=== PATIENT | female | born 1980 | race Caucasian/White ===

== ENCOUNTER 2020-01-29 12:54 | Outpatient (CLI) | payer OTHER, SELFPAY ==
[2020-01-29 22:02] LABS: SARS-CoV-2 RNA PCR Negative
== END 2020-01-29 12:55 | disposition home or self-care (01) ==
LOC: CHSLAB 12:59
PROVIDERS: PCP Family Medicine; Visit Provider Family Medicine
DX: J01.80 Other acute sinusitis (principal); Z20.828 Contact with and (suspected) exposure to other viral communicable diseases
CPT/HCPCS: 87635; C9803; U0003

== ENCOUNTER 2020-04-02 15:36 | Outpatient (CLI) | payer OTHER, SELFPAY ==
--- NOTE | ~2020-04-02 | MM_ITS ---
EXAMINATION: MM screening contra [facility] BI w pooja HISTORY: Screening mammogram TECHNIQUE: Craniocaudal and mediolateral oblique 3-D tomosynthesis images were obtained and synthetic 2-D images were generated. CAD analysis was submitted and interpreted. COMPARISON: None, baseline BREAST PARENCHYMAL COMPOSITION: The breasts are heterogeneously dense, which may obscure small masses . FINDINGS: A fat-containing mass in the upper outer quadrant of the left breast consistent with an int ramammary lymph node. There is no evidence of suspicious mass, calcification, or architectural distor tion to suggest malignancy in either breast. IMPRESSION: 1. No mammographic evidence of malignancy. 2. Recommend routine screening mammography in one year. BI-RADS Category 2: Benign finding(s). Reviewed, dictated and finalized at location A. SMITTER ENGINEER
--- NOTE | ~2020-04-02 | XR_ITS ---
EXAMINATION: XR abdomen obstructive series EXAM DATE: 04/02/2020 16:04 INDICATION: Nausea and vomiting. TECHNIQUE: Frontal upright projection of the upper abdomen, frontal projection of the lower abdomen f or interpretation. There is no prior study for comparison. FINDINGS: There is expected amount of colonic stool and gas. No small bowel dilation, nonobstructiv e bowel gas pattern. Calcifications in the pelvis are believed to be phleboliths. There is no orga nomegaly suspected. The bones are unremarkable. There is no free intraperitoneal air. The lung b ases are clear. IMPRESSION: Unremarkable abdomen x-ray exam. Reviewed, dictated and finalized at location A. WOOD LATHE OPERATOR
== END 2020-04-02 15:37 | disposition home or self-care (01) ==
LOC: CHSIMG 15:38
PROVIDERS: PCP Family Medicine; Visit Provider Family Medicine
DX: Z12.31 Encounter for screening mammogram for malignant neoplasm of breast (principal); R11.2 Nausea with vomiting, unspecified
CPT/HCPCS: 74019; 77063; 77067

== ENCOUNTER 2020-04-08 08:05 | Outpatient (CLI) | payer OTHER, SELFPAY ==
--- NOTE | ~2020-04-08 | US_ITS ---
EXAMINATION: US right upper quadrant EXAM DATE: 04/08/2020 08:31 INDICATION: Nausea with vomiting. TECHNIQUE: Multiple grayscale and Doppler images of the abdomen right upper quadrant were obtained (ave y a technologist who performed the scan) and subsequently reviewed. There is no prior study for dani wilkins. FINDINGS: The pancreatic head and body are normal in appearance. The pancreatic tail is not visualized. The l iver has normal echogenicity and contour. There are no focal liver lesions identified. There is no evidence of intrahepatic biliary duct dilation. Portal venous flow was seen in the hepatopedal, nor mal direction and has normal Doppler waveform. No right-sided hydronephrosis. Common bile duct measures 6 mm, which is normal. The gallbladder wall is normal in thickness, with ex pected amount of distention. No sonographic evidence of pericholecystic fluid. There is no cholelit hiases. Technologist performing exam reports patient did not demonstrate sonographic Black's sign. Please note that this sign is less reliable in patients who have received pain medication. IMPRESSION: 1. Unremarkable abdominal ultrasound exam. Reviewed, dictated and finalized at location B. ROUNDER
--- NOTE | 2020-04-09 12:54 | WPDHOLTEREM ---
Holter/Event Monitor Holter/Event Monitor Date of procedure: 04/08/20 Procedure Type: 24 hour holter monitor Indications: Palpitations Conclusion: 1. 24 hour holter monitor on 04/08/20. 2. Underlying rhythm is sinus rhythm. HR range 51-174 bpm; average HR 84 bpm. 3. No premature supraventricular complexes. No supraventricular tachycardia. 4. There are 393 premature ventricular complexes, 3 ventricular bigeminy and 6 ventricular trigeminy. No ventricular tachycardia. 5. No sinoatrial or atrioventricular blocks. No significant pauses greater than 2 seconds. 6. Patient reports symptoms of rapid heart beat, skipping, chest pain, heart racing which demonstrate sinus rhythm, HR range 79-98 bpm with 2 episodes with PVC's.
== END 2020-04-08 08:06 | disposition home or self-care (01) ==
LOC: CHSIMG 08:08
PROVIDERS: PCP Family Medicine; Visit Provider Family Medicine
DX: R11.2 Nausea with vomiting, unspecified (principal); R00.2 Palpitations
CPT/HCPCS: 76705; 93225; 93226

== ENCOUNTER 2020-04-21 10:44 | Outpatient (CLI) | payer OTHER, SELFPAY ==
--- NOTE | ~2020-04-21 | NM_ITS ---
EXAMINATION: NM hepatobiliary w pharm DATE: 04/21/2020 13:24 INDICATION: Right upper quadrant abdominal pain. COMPARISON: Ultrasound 04/08/2020 TECHNIQUE: 5.9 mCi Tc-99m mebrofenin (Choletec) was administered intravenously. Scintigraphic images of the abdomen were obtained for one hour. Then, 1.3 mcg sincalide (Kinevac) IV was administered, an d imaging was continued for 30 minutes. FINDINGS: There is normal clearance of radiotracer from the blood pool. There is homogeneous tracer u ptake by the liver. Activity progresses to the bowel and gallbladder. Gallbladder ejection fraction (GBEF) was 69%. Note that most patients with gallbladder dysfunction have GBEF < 35%, which overlaps with the broad normal range of 10-90%. IMPRESSION: 1. Normal hepatobiliary scintigraphy. Reviewed, dictated and finalized at location A. IARD TABLE MECHANIC
== END 2020-04-21 10:45 | disposition home or self-care (01) ==
LOC: CHSIMG 10:46
PROVIDERS: PCP Family Medicine; Visit Provider Family Medicine
DX: R10.11 Right upper quadrant pain (principal)
CPT/HCPCS: 78227; A9537; J2805

== ENCOUNTER 2020-06-18 16:57 | Outpatient (CLI) | payer OTHER, SELFPAY ==
[2020-06-18 17:45] LABS: SARS-CoV-2 Ag Negative (Negative)
== END 2020-06-18 16:58 | disposition home or self-care (01) ==
LOC: CHSLAB 16:59
PROVIDERS: PCP Family Medicine; Visit Provider Family Medicine
DX: J00 Acute nasopharyngitis [common cold] (principal); Z20.822 Contact with and (suspected) exposure to COVID-19
CPT/HCPCS: 87081; 87426; 87880; C9803

== ENCOUNTER 2020-08-11 10:46 | Outpatient (CLI) | payer OTHER, SELFPAY ==
--- NOTE | ~2020-08-11 | XR_ITS ---
EXAMINATION: XR abdomen obstructive series DATE: 08/11/2020 11:15 INDICATION: Nausea, vomiting, and diarrhea. Left lower quadrant abdominal pain. TECHNIQUE: Upright and supine views of the abdomen on 3 radiographs were obtained. COMPARISON: Abdomen radiographs 04/02/2020 FINDINGS: There are no dilated loops of bowel. There is a small volume of stool in the colon. Calcifi cations in the pelvis are likely phleboliths. IMPRESSION: 1. Normal bowel gas pattern. Reviewed, dictated and finalized at location A.
--- NOTE | ~2020-08-11 | US_ITS ---
EXAMINATION: US pelvic complete DATE: 08/11/2020 14:15 INDICATION: Left pelvic pain Comparison:04/23/2016 TECHNIQUE: Multiple transabdominal sonographic images of the pelvis performed. FINDINGS: The uterus and right ovary are surgically absent. Left ovary measures 4.3 x 2.3 x 2.2 cm an d contains a 2.4 cm cyst. There is no free fluid in the pelvis. There are no abnormal masses seen on either side. IMPRESSION: 1. Left ovarian cyst measuring 2.4 cm. Reviewed, dictated and finalized at location B.
[2020-08-11 10:57] LABS: Basophils Absolute Auto 0.04 K/mm3 (0.00-0.10); Basophils Percent Auto 0.5 % (0.0-1.0); Eosinophils Percent Auto 1.2 % (1.0-6.0); Hematocrit 39.2 % (35.0-49.0); Hemoglobin 13.3 g/dL (12.0-15.0); Immature Granulocyte Absolute 0.03 K/mm3 (0.00-0.00); Immature Granulocyte Percent A 0.4 % (0.0-0.0); Lymphocytes Absolute Auto 1.68 K/mm3 (1.10-4.50); Lymphocytes Percent Auto 20.4 % (18.0-42.0); Mean Corpuscular HGB Conc 33.9 g/dL (32.0-36.0); Mean Corpuscular Hemoglobin 31.9 pg (27.0-31.0); Mean Platelet Volume 9.3 fl (9.2-11.8); Monocytes Percent Auto 4.9 % (2.0-11.0); Neutrophils Percent Auto 72.6 % (50.0-70.0); Platelet Count Result 273 K/mm3 (150-420); Red Blood Count 4.17 M/mm3 (4.20-5.40); Red Cell Distribution Width 12.4 % (11.6-14.4); White Blood Count 8.2 K/mm3 (4.8-10.8)
[2020-08-11 11:07] LABS: Add Urine Microscopic? YES; Appearance Urine Clear (Clear); Bilirubin Urine Negative (Negative); Blood Urine Negative (Negative); Color Urine Yellow (Yellow); Glucose Urine UA Negative (Negative); Ketones Urine 1+ (Negative); Leukocyte Esterase Ur Negative (Negative); Nitrate Urine Negative (Negative); Protein Urine Negative (Negative); Specific Grav Ur >= 1.030 (1.010-1.020); Urobilinogen Urine 0.2 mg/dL (0.2-1.0); pH Urine 5.5 (5.0-8.0)
[2020-08-11 11:22] LABS: Bacteria Urine 1+ /hpf; Mucus Urine Few /lpf; RBC Urine None seen /hpf (0-2); Squamous Epithelial Cell Urine Few /hpf (Few); WBC Urine None seen /hpf (0-3)
[2020-08-11 11:25] LABS: Alanine Aminotransferase 35 U/L (14-59); Albumin Level 4.2 g/dL (3.4-5.0); Alkaline Phosphatase 68 U/L (46-116); Amylase 45 U/L (25-115); Anion Gap 8 mmol/L (8-16); Aspartate Amino Transferase 27 U/L (15-37); Blood Urea Nitrogen 16 mg/dL (7-18); Calcium 9.3 mg/dL (8.5-10.1); Carbon Dioxide 28 mmol/L (21-32); Chloride 101 mmol/L (98-108); Estimated Glomerular Filt Rate > 60; Glucose 131 mg/dL (70-99); Lipase 118 U/L (73-393); Osmolality Calculated 287 mOsm/kg (285-295); Potassium 3.3 mmol/L (3.5-5.1); Sodium 137 mmol/L (136-145); Total Protein 7.7 g/dL (6.4-8.2)
[2020-08-11 16:44] LABS: Hemoglobin A1C 5.3 % (<5.7)
== END 2020-08-11 10:47 | disposition home or self-care (01) ==
PROVIDERS: PCP Family Medicine; Visit Provider Family Medicine
DX: R10.9 Unspecified abdominal pain (principal); R73.9 Hyperglycemia, unspecified
CPT/HCPCS: 36415; 74019; 76856; 80053; 81001; 82150; 83036; 83690; 85025

== ENCOUNTER 2020-08-28 12:00 | Outpatient (CLI) | payer OTHER, SELFPAY ==
[2020-08-28 13:04] LABS: SARS-CoV-2 RNA PCR Negative (Negative)
== END 2020-08-28 12:01 | disposition home or self-care (01) ==
LOC: CHSLAB 12:02
PROVIDERS: PCP Family Medicine; Visit Provider Nurse Practitioner Family
DX: Z20.822 Contact with and (suspected) exposure to COVID-19 (principal)
CPT/HCPCS: C9803; U0003; U0005

== ENCOUNTER 2020-11-25 16:40 | Outpatient (CLI) | payer OTHER, SELFPAY ==
[2020-11-25 17:17] LABS: Thyroid Stimulating Hormone 2.41 uIU/mL (0.36-3.74)
== END 2020-11-25 16:41 | disposition home or self-care (01) ==
LOC: CHSLAB 16:42
PROVIDERS: PCP Family Medicine; Visit Provider Family Medicine
DX: R94.6 Abnormal results of thyroid function studies (principal)
CPT/HCPCS: 36415; 84443

== ENCOUNTER 2021-03-10 17:09 | Outpatient (CLI) | payer OTHER, SELFPAY ==
--- NOTE | ~2021-03-10 | XR_ITS ---
XR knee RT 3V 03/10/2021 17:52 INDICATION: Right knee pain PROCEDURE: 3 views right knee COMPARISON: No prior studies for comparison. FINDINGS: Fracture, dislocation or subluxation is not identified. No significant joint effusion. The soft tissues appear within normal limits. No foreign bodies are identified. IMPRESSION: 1: NO ACUTE BONE OR JOINT ABNORMALITY IDENTIFIED. Reviewed, dictated and finalized at location A. K PATROL
== END 2021-03-10 17:10 | disposition home or self-care (01) ==
LOC: CHSIMG 17:13
PROVIDERS: PCP Family Medicine; Visit Provider Family Medicine
DX: M25.561 Pain in right knee (principal)
CPT/HCPCS: 73562

== ENCOUNTER 2021-07-10 10:23 | Emergency (ER) | payer OTHER, SELFPAY ==
--- NOTE | ~2021-07-10 | XR_ITS ---
EXAMINATION: XR chest 1V portable DATE: 07/10/2021 10:48 INDICATION: Central chest pain radiating to the left neck and left arm. Shortness of breath. TECHNIQUE: frontal view of the chest was obtained. COMPARISON: Chest radiograph and CT dated 09/03/2018 FINDINGS: Subtle left perihilar opacity. No pleural effusion or pneumothorax. The cardiomediastinal silhouette is normal. Visualized bones and soft tissues are unremarkable. IMPRESSION: 1. Subtle left perihilar opacity which could represent asymmetric mild pulmonary edema or pneumonia. Reviewed, dictated and finalized at location A. IMPRESSION: 1. Subtle left perihilar opacity which could represent asymmetric mild pulmonar y edema or pneumonia.
[2021-07-10 10:25] VITALS: BP 166/87; PULSE 91; RESP 20; TEMP 36.4; O2SAT 98
--- NOTE | 2021-07-10 10:35 | ECG_ITS ---
Measurements Intervals [place] Rate: 58 P: 66 FL: 137 QRS: 33 QRSD: 90 T: 34 QT: 399 QTc: 394 Interpretive Statements SINUS BRADYCARDIA NONSPECIFIC ST ABNORMALITY. ABNORMAL ECG NO PREVIOUS ECG AVAILABLE FOR COMPARISON Electronically Signed On 07-10-2021 16:10:33 CDT by Golden De Luna M.D.
--- NOTE | 2021-07-10 10:43 | ED.GENADULT ---
HPI - General Adult General Chief complaint: Chest Pain Stated complaint: High Blood presure/Chest pain/jaw pain Source: patient Mode of arrival: ambulatory Limitations: no limitations History of Present Illness HPI narrative: Anna is a 41F with a PMH of anxiety, GERD, chronic nausea and vomiting that presented to the ED with chest pain and palpitations. It has been on and of for a few days. Today it is a substernal pressure just in her chest with no lightheadedness or near syncope. Her nausea and vomiting is at baseline. Today her CP does not radiate but yesterday it went to the left arm. She is very concerned as her sisters had MIs at young ages and one from it. Related Data Home Medications Medication Instructions Recorded Confirmed levothyroxine 88 mcg PO DAILY 07/10/21 07/10/21 nortriptyline 25 mg PO DAILY 07/10/21 07/10/21 omeprazole 20 mg PO DAILY 07/10/21 07/10/21 Allergies Allergy/AdvReac Type Severity Reaction Status Date / Time Penicillins Allergy Anaphylaxis Verified 07/10/21 10:51 Review of Systems Constitutional: Constitutional: Reports no additional constitutional complaints, Denies chills and Denies fever(s) Eyes: Eyes: Reports no additional eye complaints ENT: Reports system reviewed and no additional complaints, except as documented Cardiovascular: Cardiovascular: Reports as per HPI Respiratory: Respiratory: Denies cough and Denies dyspnea Gastrointestinal: Gastrointestinal: Reports no additional gastrointestinal complaints Genitourinary: Genitourinary: Reports no additional female genitourinary complaints Musculoskeletal: Musculoskeletal: Reports no additional musculoskeletal complaints Integumentary/Breasts: Skin/Breast: Reports system reviewed and no additional complaints, except as docu Neurologic: Reports system reviewed and no additional complaints, except as documented Psychiatric: Psychiatric: Reports no additional psychiatric complaints Endocrine: Endocrine: Reports no additional endocrine complaints Hematologic/Lymphatic: Hematologic/Lymphatic: Reports no additional hematologic/lymphatic complaints Allergic/Immunologic: Allergic/Immunologic: Reports no additional allergic/immunologic complaints Exam Const: General: no acute distress and alert Orientation/consciousness: patient oriented x3 Limitations: No altered mental status HENMT: Head: normal to inspection Other: normocephalic, atraumatic Eyes: Pupils: Equal, round and reactive pupils present Neck: Neck: normal visual inspection Chest: Chest palpation & inspection: normal inspection of the chest Resp: Effort & Inspection: normal respiratory effort, not labored and not tachypneic Auscultation: clear to auscultation bilaterally Cardio: Rate: regular rate Rhythm: regular rhythm Heart sounds: no murmurs GI: Inspection: non-distended GI Palp: Yes Soft to palpation and No Tenderness to palpation present (GI) : General: Yes no CVA tenderness Back/Spine/Pelvis: Back: no CVA tenderness Skin: General skin exam: normal color Rashes: no rashes Neuro: General: patient oriented x3 and moves all extremities Extrem: General: normal to inspection Psych: Appearance: grossly normal Mental Status: mental status grossly normal Thought content: Yes Normal thought content present Course Course Emergency Course: Ordered labs, EKG, CXR, aspirin and Ativan EKG showed sinus bradycardia with a rate of 58, no ST elevation/depression or ectopy Lab work unremarkable. CP resolved after ativan. Clinical picture not consistent with subtle CXR findings so likely false finding. Discharged home and given return precautions. Vital Signs Vital signs: Vital Signs Temperature 97.6 F 07/10/21 10:25 Pulse Rate 91 07/10/21 10:25 Respiratory Rate 20 07/10/21 10:25 Blood Pressure 166/87 H 07/10/21 10:25 Pulse Oximetry 98 07/10/21 10:25 Temperature 97.6 F 07/10/21 11:22 Pulse Rate 67 07/10/21
[2021-07-10 10:55] LABS: Basophils Absolute Auto 0.04 K/mm3 (0.00-0.10); Basophils Percent Auto 0.9 % (0.0-1.0); Eosinophils Absolute Auto 0.12 K/mm3 (0.02-0.50); Eosinophils Percent Auto 2.6 % (1.0-6.0); Hemoglobin 13.4 g/dL (12.0-15.0); Immature Granulocyte Absolute 0.01 K/mm3 (0.00-0.00); Immature Granulocyte Percent A 0.2 % (0.0-0.0); Lymphocytes Absolute Auto 1.27 K/mm3 (1.10-4.50); Lymphocytes Percent Auto 27.1 % (18.0-42.0); Mean Corpuscular HGB Conc 34.4 g/dL (32.0-36.0); Mean Corpuscular Hemoglobin 32.8 pg (27.0-31.0); Mean Corpuscular Volume 95.4 fL (78.0-102.0); Mean Platelet Volume 9.6 fl (9.2-11.8); Monocytes Absolute Auto 0.25 K/mm3 (0.10-0.90); Monocytes Percent Auto 5.3 % (2.0-11.0); Neutrophils Percent Auto 63.9 % (50.0-70.0); Platelet Count Result 305 K/mm3 (150-420); Red Blood Count 4.09 M/mm3 (4.20-5.40); White Blood Count 4.7 K/mm3 (4.8-10.8)
[2021-07-10] MEDS: ASPIRIN 81 MG CHEWABLE TABLET 324 MG PO (11:07)
[2021-07-10] MEDS: LORazepam INJ (*CRX) 2 MG/ML VIAL 1 MG IV PUSH (11:07)
[2021-07-10 11:16] LABS: Alanine Aminotransferase 23 U/L (14-59); Albumin Level 4.4 g/dL (3.4-5.0); Alkaline Phosphatase 58 U/L (46-116); Anion Gap 13 mmol/L (8-16); Aspartate Amino Transferase 22 U/L (15-37); Bilirubin,Total 1.5 mg/dL (0.00-1.00); Blood Urea Nitrogen 11 mg/dL (7-18); Calcium 9.3 mg/dL (8.5-10.1); Carbon Dioxide 25 mmol/L (21-32); Chloride 103 mmol/L (98-108); Estimated CRCL calculation 73 ml/min; Estimated Glomerular Filt Rate > 60; Glucose 86 mg/dL (70-99); Lipase 96 U/L (73-393); Magnesium 1.8 mg/dL (1.8-2.4); NT Pro B Type Natriuretic Pept 63 pg/mL (0-125); Osmolality Calculated 290 mOsm/kg (285-295); Potassium 3.3 mmol/L (3.5-5.1); Sodium 141 mmol/L (136-145); Total Protein 7.7 g/dL (6.4-8.2)
[2021-07-10 11:22] VITALS: BP 134/83; PULSE 67; RESP 20; TEMP 36.4; O2SAT 98
== END 2021-07-10 11:26 | disposition home or self-care (01) ==
PROVIDERS: Emergency Provider Family Medicine; PCP Family Medicine
DX: R07.9 Chest pain, unspecified (principal); F43.9 Reaction to severe stress, unspecified
CPT/HCPCS: 36415; 71045; 80053; 83690; 83735; 83880; 84484; 85025; 93005; 96374; 99284; A9270; J2060

== ENCOUNTER 2021-08-10 08:45 | Outpatient (CLI) | payer OTHER, SELFPAY ==
--- NOTE | 2021-08-10 09:35 | EST_ITS ---
Patient Info Name: Anna Meyer Age: 41 years : 1980 Gender: Female Ht: 62 in Wt: 133 lbs BSA: 1.64 m2 HR: 79 bpm BP: 130 / 80 mmHg Heart Rhythm: Sinus Rhythm Technical Quality: Good Exam Date: 08/10/2021 9:26 AM Exam Location: [facility] Patient Status: Outpatient Admit Date: 08/10/2021 Staff Ordering Physician: Rubén Cvaazos MD Attending Provider: Rubén Cavazos MD Exercise Technologist: Rhoda Abdul CRT Exercise Physician: Maddie Green CEP Exam Type: CA stress test treadmill Study Info Indications ChestPain - A treadmill exercise stress test was performed. History/Risk Factors Tobacco Use: Former Dialysis: None History/Risk Factors Former Smoker. Summary 1. 1. Negative Tera exercise stress test for ischemic ST changes by ECG criteria. 2. 2. Good functional capacity, achieving 11 METs of workload. 3. 3. Appropriate HR response to exercise. 4. 4. Appropriate HR recovery at 1 minute post exercise. 5. 5. No imaging with stress testing. Protocol: Tera Stress ECG Details Stage: REST Duration (min): 6 min : 41 sec Speed (mph): 0.0 Grade (%): 0 HR (bpm): 61 SBP (mmHg): --- DBP (mmHg): --- METS: --- Stage: REST Duration (min): 8 min : 26 sec Speed (mph): 0.0 Grade (%): 0 HR (bpm): 74 SBP (mmHg): --- DBP (mmHg): --- METS: --- Stage: STAGE 1 Duration (min): 1 min : 0 sec Speed (mph): 1.7 Grade (%): 10 HR (bpm): 92 SBP (mmHg): --- DBP (mmHg): --- METS: --- Stage: STAGE 1 Duration (min): 2 min : 0 sec Speed (mph): 1.7 Grade (%): 10 HR (bpm): 91 SBP (mmHg): --- DBP (mmHg): --- METS: --- Stage: STAGE 1 Duration (min): 3 min : 0 sec Speed (mph): 1.7 Grade (%): 10 HR (bpm): 102 SBP (mmHg): --- DBP (mmHg): --- METS: --- Stage: STAGE 2 Duration (min): 1 min : 0 sec Speed (mph): 2.5 Grade (%): 12 HR (bpm): 111 SBP (mmHg): --- DBP (mmHg): --- METS: --- Stage: STAGE 2 Duration (min): 2 min : 0 sec Speed (mph): 2.5 Grade (%): 12 HR (bpm): 118 SBP (mmHg): --- DBP (mmHg): --- METS: --- Stage: STAGE 2 Duration (min): 3 min : 0 sec Speed (mph): 2.5 Grade (%): 12 HR (bpm): 115 SBP (mmHg): --- DBP (mmHg): --- METS: --- Stage: STAGE 3 Duration (min): 1 min : 0 sec Speed (mph): 3.4 Grade (%): 14 HR (bpm): 130 SBP (mmHg): --- DBP (mmHg): --- METS: --- Stage: STAGE 3 Duration (min): 2 min : 0 sec Speed (mph): 3.4 Grade (%): 14 HR (bpm): 134 SBP (mmHg): --- DBP (mmHg): --- METS: --- Stage: STAGE 3 Duration (min): 3 min : 0 sec Speed (mph): 3.4 Grade (%): 14 HR (bpm): 134 SBP (mmHg): --- DBP (mmHg): --- METS: --- Stage: STAGE 4 Duration (min): 0 min : 44 sec Speed (mph): 4.2 Grade (%): 1
== END 2021-08-10 08:46 | disposition home or self-care (01) ==
PROVIDERS: PCP Family Medicine; Visit Provider Family Medicine
DX: R07.9 Chest pain, unspecified (principal)
CPT/HCPCS: 93017

== ENCOUNTER 2022-02-16 08:27 | Outpatient (CLI) | payer OTHER, SELFPAY ==
--- NOTE | ~2022-02-16 | US_ITS ---
EXAMINATION: US abdomen complete DATE: 02/16/2022 09:16 INDICATION: ELEVATED LIVER ENZYMES TECHNIQUE: Multiple grayscale and Doppler ultrasound images of the abdomen were obtained. COMPARISON: 04/08/2020. Hepatobiliary scan 04/21/2020. FINDINGS: The visualized portions of the pancreas are normal. The liver is enlarged with increased ec hogenicity and normal echotexture. No surface nodularity. Normal hepatopetal flow in the main portal vein. The gallbladder is distended and contains sludge. No wall thickening or pericholecystic fluid. The common bile duct measures 10 mm. There was no sonographic Black sign. The visualized portions of the aorta and inferior vena cava are normal. The right kidney measures 10.0 x 4.8 x 3.6. The left kidney measures 10.3 x 5.2 x 5.1. The kidneys de monstrate normal parenchymal echogenicity. There is no hydronephrosis. The spleen is normal in appear ance and measures 10.0 cm. IMPRESSION: Gallbladder hydrops and extrahepatic bile duct dilation. Consider MRCP for further evaluation. Reviewed, dictated and finalized at location K. IMPRESSION: Gallbladder hydrops and extrahepatic bile duct dilation. Consider MRCP for furt her evaluation.
== END 2022-02-16 08:28 | disposition home or self-care (01) ==
LOC: CHSIMG 08:29
PROVIDERS: PCP Family Medicine; Visit Provider Family Medicine
DX: R94.5 Abnormal results of liver function studies (principal)
CPT/HCPCS: 76700

== ENCOUNTER 2022-07-08 09:20 | Outpatient (CLI) | payer OTHER, SELFPAY ==
--- NOTE | ~2022-07-08 | MR_ITS ---
MRI of the brain Clinical History: Headache Technique: Axial and sagittal T1-weighted images were acquired. These were followed by axial T2-weigh mellisa, diffusion weighted, gradient, and FLAIR images. Findings: No significant signal abnormality seen in the brain parenchyma. There is no acute infarct, intracranial hemorrhage, or mass lesion. Ventricles and subarachnoid spaces are unremarkable. Orbits are unremarkable. Small retention cyst or polyp present in the left sphenoid sinus. Paranasal sinuses and mastoid air cells are otherwise kassy r. Major intracranial flow voids appear intact. Sagittal midline structures are intact. IMPRESSION: No significant abnormality seen. Reviewed, dictated and finalized at location .
== END 2022-07-08 09:21 | disposition home or self-care (01) ==
LOC: CHSIMG 09:21
PROVIDERS: PCP Family Medicine; Visit Provider Family Medicine
DX: R51.9 Headache, unspecified (principal)
CPT/HCPCS: 70551

== ENCOUNTER 2022-12-07 10:54 | Outpatient (CLI) | payer OTHER, SELFPAY ==
[2022-12-07 11:13] LABS: Hematocrit 40.5 % (35.0-49.0); Hemoglobin 13.4 g/dL (12.0-15.0); Immature Granulocyte Percent A 0.6 % (0.0-0.0); Mean Corpuscular HGB Conc 33.1 g/dL (32.0-36.0); Mean Corpuscular Hemoglobin 33.8 pg (27.0-31.0); Mean Corpuscular Volume 102.3 fL (78.0-102.0); Mean Platelet Volume 10.2 fl (9.2-11.8); Neutrophils Percent Auto 57.1 % (50.0-70.0); Platelet Count Result 294 K/mm3 (150-420); Red Blood Count 3.96 M/mm3 (4.20-5.40); Red Cell Distribution Width 13.3 % (11.6-14.4); White Blood Count 5.3 K/mm3 (4.8-10.8)
[2022-12-07 11:14] LABS: Basophils Absolute Auto 0.06 K/mm3 (0.00-0.10); Basophils Percent Auto 1.1 % (0.0-1.0); Eosinophils Absolute Auto 0.22 K/mm3 (0.02-0.50); Eosinophils Percent Auto 4.1 % (1.0-6.0); Immature Granulocyte Absolute 0.03 K/mm3 (0.00-0.00); Lymphocytes Percent Auto 28.1 % (18.0-42.0); Monocytes Absolute Auto 0.48 K/mm3 (0.10-0.90); Neutrophils Absolute Auto 3.1 K/mm3 (1.7-7.2)
[2022-12-07 12:10] LABS: Alanine Aminotransferase 101 U/L (14-59); Albumin Level 3.4 g/dL (3.4-5.0); Alkaline Phosphatase 80 U/L (46-116); Amylase 47 U/L (25-115); Anion Gap 8 mmol/L (8-16); Aspartate Amino Transferase 82 U/L (15-37); Bilirubin,Total 0.6 mg/dL (0.00-1.00); Blood Urea Nitrogen 15 mg/dL (7-18); Calcium 8.3 mg/dL (8.5-10.1); Carbon Dioxide 27 mmol/L (21-32); Chloride 106 mmol/L (98-108); Estimated Glomerular Filt Rate > 60; Glucose 84 mg/dL (70-99); Lipase 48 U/L (16-77); Osmolality Calculated 291 mOsm/kg (285-295); Potassium 3.8 mmol/L (3.5-5.1); Sodium 141 mmol/L (136-145); Thyroid Stimulating Hormone 17.24 uIU/mL (0.36-3.74); Total Protein 6.3 g/dL (6.4-8.2)
== END 2022-12-07 10:55 | disposition home or self-care (01) ==
LOC: CHSLAB 10:56
PROVIDERS: PCP Family Medicine; Visit Provider Family Medicine
DX: R10.84 Generalized abdominal pain (principal); E03.8 Other specified hypothyroidism
CPT/HCPCS: 36415; 80053; 82150; 83690; 84443; 85025

== ENCOUNTER 2022-12-09 07:26 | Outpatient (CLI) | payer OTHER, SELFPAY ==
--- NOTE | ~2022-12-09 | US_ITS ---
EXAMINATION: US abdomen complete DATE: 12/09/2022 07:49 INDICATION: Elevated liver enzymes TECHNIQUE: Multiple grayscale and Doppler ultrasound images of the abdomen were obtained. COMPARISON: 02/16/2022 FINDINGS: The head and body of the pancreas are normal. The pancreatic tail is obscured by bowel gas. The liver is normal with normal echogenicity and echotexture. No surface nodularity. Normal hepatope bella flow in the main portal vein. The gallbladder is normal with no abnormal wall thickening, pericho lecystic fluid or stones. The normal common bile duct measures 6 mm. There was no sonographic Black sign. The visualized portions of the aorta and inferior vena cava are normal. The spleen is normal in appearance and measures 11.1 cm. The right kidney measures 9.6 x 4.3 x 3.7 cm . The left kidney measures 9.0 x 3.6 x 5.1 cm. The kidneys demonstrate normal parenchymal echogenicit y. There is no hydronephrosis. IMPRESSION: 1. No sonographic correlate for the patient's symptoms. Reviewed, dictated and finalized at location A.
== END 2022-12-09 07:27 | disposition home or self-care (01) ==
LOC: CHSIMG 07:28
PROVIDERS: PCP Family Medicine; Visit Provider Family Medicine
DX: R74.01 Elevation of levels of liver transaminase levels (principal)
CPT/HCPCS: 76700

== ENCOUNTER 2023-02-14 17:22 | Emergency (ER) | payer SELFPAY ==
--- NOTE | ~2023-02-14 | CT_ITS ---
EXAMINATION: CT abdomen pelvis w con DATE: 02/14/2023 19:04 INDICATION: Acute bilateral lower lower abdominal pain. TECHNIQUE: Computed tomography (CT) of the abdomen and pelvis was performed with 100 cc Omnipaque 350 intravenous contrast. The dose-length product was 332.73 mGy-cm. Automated exposure control and iter ative reconstruction technique were employed. COMPARISON: None. FINDINGS: Lung bases unremarkable. Heart size normal. No significant pleural or pericardial effusion. Fatty infiltration of the liver. The spleen, pancreas, adrenal glands and kidneys are unremarkable. No hydronephrosis. Nonobstructive bowel gas pattern. There is free fluid in the pelvic cul-de-sac. No nobstructive bowel pattern. No significant vascular abnormality. No lymphadenopathy. Gallbladder is p resent. No acute osseous abnormality. There is diffuse abnormal thickening of the transverse, descend ing and sigmoid colon, suspicious for colitis. IMPRESSION: 1. Free fluid in the pelvic cul-de-sac, nonspecific. 2: Abnormal thickening of the distal colon including the transverse, descending and sigmoid colon, lewis spicious for colitis, most likely infectious or inflammatory. Reviewed, dictated and finalized at location A. IMPRESSION: 1. Free fluid in the pelvic cul-de-sac, nonspecific. 2: Abnormal thickening of the distal colon including the transverse, descending and sigmoid colon, suspicious for colitis, most likely infectious or inflammat ory.
[2023-02-14 17:35] VITALS: BP 108/66; PULSE 59; RESP 16; TEMP 36.9; O2SAT 97
[2023-02-14 18:05] LABS: Basophils Absolute Auto 0.04 K/mm3 (0.00-0.10); Basophils Percent Auto 0.9 % (0.0-1.0); Eosinophils Absolute Auto 0.16 K/mm3 (0.02-0.50); Eosinophils Percent Auto 3.8 % (1.0-6.0); Hematocrit 45.6 % (35.0-49.0); Hemoglobin 15.3 g/dL (12.0-15.0); Immature Granulocyte Absolute 0.01 K/mm3 (0.00-0.00); Immature Granulocyte Percent A 0.2 % (0.0-0.0); Lymphocytes Absolute Auto 1.14 K/mm3 (1.10-4.50); Mean Corpuscular HGB Conc 33.6 g/dL (32.0-36.0); Mean Corpuscular Volume 98.3 fL (78.0-102.0); Mean Platelet Volume 9.8 fl (9.2-11.8); Monocytes Percent Auto 9.5 % (2.0-11.0); Neutrophils Absolute Auto 2.5 K/mm3 (1.7-7.2); Neutrophils Percent Auto 58.6 % (50.0-70.0); Platelet Count Result 251 K/mm3 (150-420); Red Blood Count 4.64 M/mm3 (4.20-5.40); Red Cell Distribution Width 12.7 % (11.6-14.4); White Blood Count 4.2 K/mm3 (4.8-10.8)
[2023-02-14] MEDS: SODIUM CHLORIDE 0.9% IV 1,000 ML 999 ML IV CONT (18:05)
[2023-02-14 18:06] LABS: Appearance Urine Clear (Clear); Bilirubin Urine Negative (Negative); Blood Urine Negative (Negative); Color Urine Yellow (Yellow); Glucose Urine UA Negative (Negative); Ketones Urine Negative (Negative); Leukocyte Esterase Ur Negative LEU/UL (Negative); Nitrate Urine Negative (Negative); Protein Urine Negative (Negative); Specific Grav Ur 1.025 (1.010-1.020); Urobilinogen Urine 0.2 mg/dL (0.2-1.0)
[2023-02-14] MEDS: KETOROLAC 30 MG/ML VIAL (*BKC) IV PUSH (18:07)
[2023-02-14 18:12] LABS: Add Urine Microscopic? NO
[2023-02-14 18:27] LABS: Alanine Aminotransferase 125 U/L (14-59); Albumin Level 3.2 g/dL (3.4-5.0); Alkaline Phosphatase 99 U/L (46-116); Anion Gap 7 mmol/L (8-16); Aspartate Amino Transferase 70 U/L (15-37); Bilirubin,Total 1.4 mg/dL (0.00-1.00); Blood Urea Nitrogen 9 mg/dL (7-18); Carbon Dioxide 28 mmol/L (21-32); Chloride 105 mmol/L (98-108); Estimated CRCL calculation 75 ml/min; Estimated Glomerular Filt Rate > 60; Glucose 93 mg/dL (70-99); Lipase 25 U/L (16-77); Osmolality Calculated 288 mOsm/kg (285-295); Sodium 140 mmol/L (136-145); Total Protein 6.6 g/dL (6.4-8.2)
--- NOTE | 2023-02-14 19:26 | ED.GENADULT ---
HPI - General Adult General Chief complaint: Abdominal Pain Stated complaint: abd pain Time Seen by Provider: 02/14/23 17:42 History of Present Illness HPI narrative: 42yo woman with history of diverticulosis presents with bilateral lower abdominal pain for a few days with new onset nausea, diarrhea, and bloody stools. No fever. Pain mild to moderate. Related Data Home Medications Medication Instructions Recorded Confirmed levothyroxine 88 mcg tablet 88 mcg PO DAILY 07/10/21 02/14/23 nortriptyline 25 mg capsule 25 mg PO DAILY 07/10/21 02/14/23 omeprazole 20 mg capsule,delayed 20 mg PO DAILY 07/10/21 02/14/23 release Allergies Allergy/AdvReac Type Severity Reaction Status Date / Time Penicillins Allergy Anaphylaxis Verified 02/14/23 17:24 Review of Systems Review of Systems: All systems reviewed & are unremarkable except as noted in HPI and below Constitutional: Constitutional: Denies chills and Denies fever(s) ENT: Denies dysphagia Cardiovascular: Cardiovascular: Denies chest pain Respiratory: Respiratory: Denies dyspnea Gastrointestinal: Gastrointestinal: Reports abdominal pain Exam Const: General: healthy appearing and no acute distress Nutritional Appearance: well nourished Eyes: Conjunctivae: conjunctivae normal Cardio: Rate: regular rate Rhythm: regular rhythm Heart sounds: no murmurs GI: Inspection: non-distended GI Palp: Yes Soft to palpation and Yes Tenderness to palpation present (GI) Skin: General skin exam: normal color, no jaundice and no pallor Extrem: General: no clubbing, cyanosis or edema Course Course Emergency Course: CT notable for colitis. Abx and anti-inflammatories and antihistamines ordered. Fluids given. Stable exam. Appropriate for outpt mgt. Vital Signs Vital signs: Vital Signs Temperature 36.9 C 02/14/23 17:35 Pulse Rate 59 L 02/14/23 17:35 Respiratory Rate 16 02/14/23 17:35 Blood Pressure 108/66 02/14/23 17:35 Pulse Oximetry 97 02/14/23 17:35 Oxygen Delivery Room Air 02/14/23 17:35 Temperature 36.9 C 02/14/23 17:35 Pulse Rate 59 L 02/14/23 17:35 Respiratory Rate 16 02/14/23 17:35 Blood Pressure 108/66 02/14/23 17:35 Pulse Oximetry 97 02/14/23 17:35 Oxygen Delivery Room Air 02/14/23 17:35 Medical Decision Making MDM Narrative Medical decision making narrative: acute BLQ abd pain DDx diverticulitis, coitis, cystitis, probably not appendicitis. Probably more severe than indigestion. Vital Signs Vital Signs: Vital Signs Temperature 36.9 C 02/14/23 17:35 Pulse Rate 59 L 02/14/23 17:35 Respiratory Rate 16 02/14/23 17:35 Blood Pressure 108/66 02/14/23 17:35 Pulse Oximetry 97 02/14/23 17:35 Oxygen Delivery Room Air 02/14/23 17:35 Temperature 36.9 C 02/14/23 17:35 Pulse Rate 59 L 02/14/23 17:35 Respiratory Rate 16 02/14/23 17:35 Blood Pressure 108/66 02/14/23 17:35 Pulse Oximetry 97 02/14/23 17:35 Oxygen Delivery Room Air 02/14/23 17:35 Lab Data 02/14/23 18:02 02/14/23 18:02 Labs: Lab Results 02/14/23 Range/Units 18:02 WBC 4.2 L (4.8-10.8) K/mm3 RBC 4.64 (4.20-5.40) M/mm3 Hgb 15.3 H (12.0-15.0) g/dL Hct 45.6 (35.0-49.0) % MCV 98.3 (78.0-102.0) fL MCH 33.0 H (27.0-31.0) pg MCHC 33.6 (32.0-36.0) g/dL RDW 12.7 (11.6-14.4) % Plt Count 251 (150-420) K/mm3 MPV 9.8 (9.2-11.8) fl Immature Gran % (Auto) 0.2 H (0.0-0.0) % Neut % (Auto) 58.6 (50.0-70.0) % Lymph % (Auto) 27.0 (18.0-42.0) % [place] % (Auto) 9.5 (2.0-11.0) % Eos % (Auto) 3.8 (1.0-6.0) % Baso % (Auto) 0.9 (0.0-1.0) % Lymph # (Auto) 1.14 (1.10-4.50) K/mm3 [place] # (Auto) 0.40 (0.10-0.90) K/mm3 Eos # (Auto) 0.16 (0.02-0.50) K/mm3 Baso # (Auto) 0.04 (0.00-0.10) K/mm3 Abs Immat Gran (auto) 0.01 H (0.00-0.00) K/mm3 Absolute Neuts (auto) 2.5 (1.7-7.2) K/mm3 Absolute Nucleated RBC 0.00 (0.00
[2023-02-14] MEDS: diphenhydrAMINE HCl INJ 50 MG/ML VIAL 25 MG IV PUSH (19:32)
[2023-02-14] MEDS: metroNIDAZOLE 250 MG TABLET 500 MG PO (19:33)
[2023-02-14] MEDS: MORPHINE SULFATE (*CRX) 4 MG/ML INJ IV PUSH (20:36)
[2023-02-14] MEDS: PROCHLORPERAZINE EDISYLATE 10 MG/2 ML VIAL IV PUSH (20:36)
== END 2023-02-14 21:00 | disposition home or self-care (01) ==
PROVIDERS: Emergency Provider Emergency Medicine; PCP Family Medicine
DX: K52.9 Noninfective gastroenteritis and colitis, unspecified (principal); Z79.899 Other long term (current) drug therapy
CPT/HCPCS: 36415; 74177; 80053; 81003; 83690; 83735; 85025; 96361; 96365; 96375; 99284; A9270; J0696; J0780; J1100; J1200; J1885; J2270; J7030; Q9967

== ENCOUNTER 2023-03-23 19:21 | Emergency (ER) | payer SELFPAY ==
[2023-03-23] VITALS (11 sets, daily range): BP systolic 97–111; BP diastolic 75–91; PULSE 68–85; RESP 9–21; TEMP 36.4–36.8; O2SAT 95–100
--- NOTE | ~2023-03-23 | XR_ITS ---
EXAMINATION: XR chest 1V portable Exam Date/Time: 03/23/2023 20:14 FELTMAKER HISTORY: MID CP X 1 DAY Comparison: 07/10/2021. RESULT: Lines, tubes, and devices: None. Lungs and pleura: Clear. Cardiomediastinal silhouette: Stable. Other: No acute osseous or upper abdominal finding. IMPRESSION: No acute cardiopulmonary process. Reviewed, dictated and finalized at location K. MAKER
--- NOTE | 2023-03-23 19:23 | ED.CHESTPAIN ---
HPI - Chest Pain General Chief Complaint: Chest Pain Stated Complaint: chest pain Time Seen by Provider: 03/23/23 19:23 Source: patient Mode of arrival: ambulatory Limitations: no limitations History of Present Illness HPI narrative: 42-year-old female with marijuana use, hypothyroidism, anxiety, GERD, chronic nausea/ vomiting had some argument with her child following which she developed -- substernal chest pain radiating to the jaw and the neck. She has had prior episodes of chest pain. She had a negative stress test last year. -- Anxiety. The patient is tearful. Denied fever or chills. Denied shortness of breath. MD complaint: chest pain Onset (ago): day(s) ( One day) Timing of current episode: constant Prior episodes: Yes Onset: during rest Pain location: substernal Pain radiation: neck and jaw/teeth Pain scale (0-10): 8 Quality: aching Relieving factors: nothing Exacerbating factors: nothing Associated symptoms: nausea Treatment prior to arrival: none Risk Factors Coronary artery disease risk factors: hypertension Related Data On Oral Contraceptives: No Home Medications Medication Instructions Recorded Confirmed levothyroxine 88 mcg tablet 88 mcg PO DAILY 07/10/21 02/14/23 nortriptyline 25 mg capsule 25 mg PO DAILY 07/10/21 02/14/23 omeprazole 20 mg capsule,delayed 20 mg PO DAILY 07/10/21 02/14/23 release Allergies Allergy/AdvReac Type Severity Reaction Status Date / Time Penicillins Allergy Anaphylaxis Verified 02/14/23 17:24 Review of Systems Review of Systems: All systems reviewed & are unremarkable except as noted in HPI and below Constitutional: Constitutional: Reports as per HPI and Reports no additional constitutional complaints Eyes: Eyes: Reports as per HPI and Reports no additional eye complaints ENT: Reports system reviewed and no additional complaints, except as documented and Reports as per HPI Cardiovascular: Cardiovascular: Reports as per HPI, Reports no additional cardiovascular complaints and Reports chest pain Respiratory: Respiratory: Reports as per HPI and Reports no additional respiratory complaints Gastrointestinal: Gastrointestinal: Reports as per HPI, Reports no additional gastrointestinal complaints and Reports nausea Genitourinary: Genitourinary: Reports no additional female genitourinary complaints Musculoskeletal: Musculoskeletal: Reports no additional musculoskeletal complaints and Reports as per HPI Integumentary/Breasts: Skin/Breast: Reports system reviewed and no additional complaints, except as docu and Reports as per HPI Neurologic: Reports system reviewed and no additional complaints, except as documented and Reports as per HPI Comments: complains of numbness of both toes. Psychiatric: Psychiatric: Reports no additional psychiatric complaints, Reports as per HPI and Reports anxiety Endocrine: Endocrine: Reports no additional endocrine complaints and Reports as per HPI Hematologic/Lymphatic: Hematologic/Lymphatic: Reports no additional hematologic/lymphatic complaints and Reports as per HPI Allergic/Immunologic: Allergic/Immunologic: Reports no additional allergic/immunologic complaints and Reports as per HPI PMFSH Past Medical History Medical History (Updated 03/23/23 @ 20:34 by Genaro Tipton MD) Anxiety GERD (gastroesophageal reflux disease) Hypothyroidism Social History Social History (Updated 03/23/23 @ 19:37 by Genaro Tipton MD) Social History: marijuana use Exam Const: General: ill appearing Orientation/consciousness: patient oriented x3 Limitations: no limitations HENMT: Head: normal to inspection Ears: external ears normal Face/Nose/Sinus: Normal external nose present Face and sinus: normal facial exam Mouth: Yes Normal oral and palatal mucosa present Throat: posterior oropharynx normal Eyes: Conjunctivae: conjunctivae normal Pupils: Equal, round and reactive pupils present EOM: EOMs intact bilateral
--- NOTE | 2023-03-23 19:28 | ECG_ITS ---
Measurements Intervals [place] Rate: 63 P: 64 MD: 141 QRS: 34 QRSD: 98 T: 52 QT: 381 QTc: 393 Interpretive Statements SINUS RHYTHM WITH SINUS ARRHYTHMIA INDETERMINATE AXIS LOW QRS VOLTAGE IN PRECORDIAL LEADS [QRS DEFLECTION < 1.0 mV IN CHEST LEADS] SEPTAL MYOCARDIAL INFARCTION , OF INDETERMINATE AGE [40+ ms Q WAVE IN V1/V2] COMPARED TO ECG 07/10/2021 10:37:21 SINUS RHYTHM NOW PRESENT SINUS ARRHYTHMIA NOW PRESENT Electronically Signed On 03-24-2023 9:15:59 SAILMAKER by Russ Benitez M.D.
[2023-03-23 19:41] LABS: Hemoglobin 14.3 g/dL (12.0-15.0); Mean Corpuscular HGB Conc 33.3 g/dL (32.0-36.0); Mean Corpuscular Hemoglobin 32.2 pg (27.0-31.0); Mean Corpuscular Volume 96.8 fL (78.0-102.0); Mean Platelet Volume 9.3 fl (9.2-11.8); Platelet Count Result 251 K/mm3 (150-420); Red Blood Count 4.44 M/mm3 (4.20-5.40); Red Cell Distribution Width 12.4 % (11.6-14.4); White Blood Count 3.7 K/mm3 (4.8-10.8)
--- NOTE | 2023-03-23 19:49 | PC.NURSE ---
EKG completed and shown to provider for analysis. patient on cardiac/vascular sonographer, awaiting results of blood work. patient tearful, tells RN she has a lot going on tissues provided. patient cooperative and withdrawn. visitor at bedside. patient denies current needs, RN monitoring.
[2023-03-23] MEDS: ALPRAZolam (*CRX) 0.5 MG TABLET PO (19:57)
[2023-03-23 20:00] LABS: Alanine Aminotransferase 87 U/L (14-59); Albumin Level 3.3 g/dL (3.4-5.0); Alkaline Phosphatase 73 U/L (46-116); Anion Gap 3 mmol/L (8-16); Aspartate Amino Transferase 75 U/L (15-37); Bilirubin,Total 0.4 mg/dL (0.00-1.00); Blood Urea Nitrogen 9 mg/dL (7-18); Calcium 8.8 mg/dL (8.5-10.1); Carbon Dioxide 33 mmol/L (21-32); Chloride 107 mmol/L (98-108); Estimated CRCL calculation 60 ml/min; Estimated Glomerular Filt Rate > 60; Glucose 78 mg/dL (70-99); Osmolality Calculated 293 mOsm/kg (285-295); Potassium 3.3 mmol/L (3.5-5.1); Sodium 143 mmol/L (136-145); Total Protein 6.3 g/dL (6.4-8.2)
[2023-03-23 20:01] LABS: Band Neutrophils Percent 0 % (0-6); Basophils Percent Manual 0 % (0-1); Eosinophils Absolute Manual 0.18 K/mm3 (0.02-0.5); Eosinophils Percent Manual 5 % (1-6); Lymphocytes Absolute Manual 2.47 K/mm3 (1.1-4.5); Lymphocytes Percent Manual 67 % (18-44); Monocytes Absolute Manual 0.18 K/mm3 (0.1-0.90); Monocytes Percent Manual 5 % (3-9); Neutrophils Absolute Manual 0.85 K/mm3 (1.7-7.2); Neutrophils Percent Manual 23 % (46-73); Platelet Estimate Adequate (Adequate); Total Cells Counted 100
[2023-03-23 20:03] LABS: Magnesium 1.7 mg/dL (1.8-2.4); Troponin I < 4.0 ng/L (0.00-60.4)
[2023-03-23] MEDS: POTASSIUM CHLORIDE 20 MEQ ER TABLET 40 MEQ PO (20:23)
[2023-03-23] MEDS: MAGNESIUM OXIDE 400 MG TABLET PO (20:23)
== END 2023-03-23 21:02 | disposition home or self-care (01) ==
PROVIDERS: Emergency Provider Internal Medicine Critical Care Medicine; PCP Family Medicine
DX: F41.9 Anxiety disorder, unspecified (principal); R07.9 Chest pain, unspecified; E03.9 Hypothyroidism, unspecified
CPT/HCPCS: 36415; 71045; 80053; 83735; 84484; 85025; 93005; 99284; A9270

== ENCOUNTER 2023-04-27 11:25 | Outpatient (CLI) | payer BC, SELFPAY ==
--- NOTE | ~2023-04-27 | XR_ITS ---
XR tibia fibula RT 2V DATE: 04/27/2023 12:03 INDICATION: Injury 4 days ago. Foot drop. TECHNIQUE: AP and lateral views COMPARISON: None FINDINGS: No fracture or dislocation, periosteal reaction or bone destruction. Normal alignment at th e knee and ankle joints. IMPRESSION: Negative Reviewed, dictated and finalized at location B. ING AND HANGING IMPRESSION: Negative
--- NOTE | ~2023-04-27 | XR_ITS ---
XR ankle RT min 3V DATE: 04/27/2023 12:03 INDICATION: Injury 4 days ago. Foot drop. TECHNIQUE: 4 views COMPARISON: None FINDINGS: There is mild lateral soft tissue swelling. No fracture or dislocation of the ankle or disr uption of the ankle mortise is detected. No periosteal reaction or bone destruction. Slight plantar calcaneal enthesopathy. IMPRESSION: Mild lateral soft tissue swelling Slight plantar calcaneal enthesopathy Reviewed, dictated and finalized at location B. FRUIT
== END 2023-04-27 11:26 | disposition home or self-care (01) ==
PROVIDERS: PCP Family Medicine; Visit Provider Family Medicine
DX: M21.371 Foot drop, right foot (principal); M79.89 Other specified soft tissue disorders; M77.32 Calcaneal spur, left foot
CPT/HCPCS: 73590; 73610

== ENCOUNTER 2023-05-04 11:06 | Outpatient (CLI) | payer BC, SELFPAY ==
--- NOTE | ~2023-05-04 | XR_ITS ---
Clinical Indication: Chest pain PA and lateral views of the chest: Comparison: 03/23/2023 Findings: The lungs are clear, without evidence of focal consolidation or pleural effusion. Cardiome diastinal silhouette is within normal limits. Bones and soft tissues are unremarkable. Impression: Normal chest. Reviewed, dictated and finalized at location . [facility] [employer] Impression: Normal chest.
== END 2023-05-04 11:07 | disposition home or self-care (01) ==
LOC: CHSIMG 11:08
PROVIDERS: PCP Family Medicine; Visit Provider Family Medicine
DX: R07.9 Chest pain, unspecified (principal)
CPT/HCPCS: 71046